=== PATIENT | male | born 1950 | race Caucasian/White ===

== ENCOUNTER → 2020-05-22 11:31 | Outpatient (CLI) | payer MEDICARE, OTHER, SELFPAY ==
[2020-05-22 13:18] LABS: Prostate Specific Antigen 2.03 ng/mL (0.10-4.00)
== END ==
PROVIDERS: PCP Family Medicine; Referring Provider Specialist; Visit Provider Specialist
DX: N43.3 Hydrocele, unspecified (principal); N39.0 Urinary tract infection, site not specified; N50.3 Cyst of epididymis; N40.1 Benign prostatic hyperplasia with lower urinary tract symptoms; N13.8 Other obstructive and reflux uropathy; K40.90 Unilateral inguinal hernia, without obstruction or gangrene, not specified as recurrent
CPT/HCPCS: 36415; 81002; 84153; 99214

== ENCOUNTER → 2023-10-24 12:00 | Outpatient (CLI) | payer OTHER, SELFPAY ==
[2023-10-24 13:37] LABS: Prostate Specific Antigen Scrn 2.57 ng/mL (0.1-4.0)
== END ==
PROVIDERS: PCP Family Medicine; Referring Provider Urology; Visit Provider Urology
DX: Z12.5 Encounter for screening for malignant neoplasm of prostate (principal)
CPT/HCPCS: G0103